=== PATIENT | female | born 1935 | race Caucasian/White ===

== ENCOUNTER 2019-08-13 16:11 | Inpatient (IN) | payer MEDICARE ==
[~2019-08-13] VITALS: Ht 170.2 cm; Wt 56.7 kg
--- NOTE | 2019-08-13 19:15 | NUR ---
ADMITTED PATIENT IN ARU UNDER THE CARE OF DR. PIZARRO. PATIENT ALERT WITH FORGETFULNESS, NO COMPLAIN OF PAIN AT THIS TIME EXCEPT WHEN PATIENT BEING TURNED AND REPOSITION. PATIENT HAS THE ORIGINAL DRESSING ON HER R HIP, AND R LATERAL LEG, PATIENT HAS ALSO MULTIPLE BRUISE ON LEFT FACE, LEFT EYES, LEFT FOREHEAD, MULTIPLE BRUISE ON LEFT ARM. PATIENT ALSO HAS R LEG EDEMA AND BILATERAL ANKLE EDEMA. PATIENT ALSO HAS LEFT BUTTOCK MULTIPLE BRUISE. FAMILY AT BED SIDE, ORIENT TO STAFF AND CALL LIGHTS, CONT TO MONITOR.
[2019-08-13 20:49] VITALS: BP 113/56
[2019-08-13 21:22] VITALS: BP 119/58
--- NOTE | 2019-08-13 23:00 | NUR ---
PLACE A CALL TO DR. ESPINAL TO NOTIFY ABOUT PATIENT ADMISSION AND MEDICATION RECONCILIATION. OKAYED THE REQUEST.
[2019-08-13] MEDS ORDERED: HYDROCODONE/APAP 5-325MG TABLET PO PRN (23:30)
[2019-08-14] MEDS: ACETAMINOPHEN 325 MG TABLET PO PRN ×3 (03:40→20:36)
--- NOTE | 2019-08-14 04:02 | NUR ---
PATIENT ALERT BUT FORGETFUL, PATIENT COMPLAIN OF R HIP PAIN WHEN MOVED OR TURN FOR BEDPAN. MEDICATE PATIENT FOR PAIN, AND PLACE ICE PACK FOR SWELLING AND FOR PAIN. PATIENT WAS CHECKED, TURN EVERY TWO HOURS, AND ASSESSED FOR PAIN, CONT TO MONITOR. DAUGHTER AT BEDSIDE.
[2019-08-14 05:56] VITALS: BP 147/59
[2019-08-14 08:00] VITALS: BP 124/57
[2019-08-14] MEDS: DONEPEZIL 10 MG TABLET PO SCH (08:23)
[2019-08-14] MEDS: MULTIVITAMINS,THERAPEUTIC TABLET PO SCH (08:23)
[2019-08-14] MEDS: ASPIRIN 81 MG TAB.CHEW PO SCH (08:23)
[2019-08-14] MEDS: METOPROLOL TARTRATE 50 MG TABLET PO SCH ×2 (08:26→20:35)
[2019-08-14] MEDS ORDERED: NADOLOL 40 MG TABLET PO SCH (09:00)
[2019-08-14] MEDS: MEMANTINE HCL 10 MG TABLET PO SCH ×2 (09:18→16:48)
[2019-08-14] MEDS: CALCIUM CARB/VITAMIN D 600-400 MG TABLET PO SCH (09:18)
--- NOTE | 2019-08-14 13:47 | NUR ---
ROSETTA DANIEL MADE AWARE ABOUT RESTARTING OF LOVENOX AND LABS TO REPEAT
[2019-08-14 14:45] LABS: BASOPHILS # (AUTO) 0.1 K/uL (0.0-8.0); BASOPHILS % (AUTO) 0.5 % (0.0-2.0); EOSINOPHILS # (AUTO) 0.2 K/uL (0.0-0.7); EOSINOPHILS % (AUTO) 1.2 % (0.0-7.0); HEMATOCRIT 32.2 % (31.2-41.9); HEMOGLOBIN 10.4 g/dL (10.9-14.3); LYMPHOCYTES # (AUTO) 2.2 K/uL (20.0-40.0); LYMPHOCYTES % (AUTO) 14.5 % (20.5-51.5); MEAN CORPUSCULAR HEMOGLOBIN 27.1 uug (24.7-32.8); MEAN CORPUSCULAR HGB CONC 32 g/dL (32.3-35.6); MEAN CORPUSCULAR VOLUME 84.1 fL (75.5-95.3); MONOCYTES # (AUTO) 1.4 K/uL (2.0-10.0); MONOCYTES % (AUTO) 9.2 % (0.0-11.0); NEUTROPHILS # (AUTO) 11.2 K/uL (1.8-8.9); NEUTROPHILS % (AUTO) 74.6 % (38.5-71.5); PLATELET COUNT (AUTO) 275 K/uL (179-408); RED BLOOD CELL COUNT(AUTO) 3.84 MIL/uL (3.63-4.92); WHITE BLOOD COUNT (AUTO) 15.1 K/uL (3.8-11.8)
[2019-08-14 14:54] LABS: CREATININE 0.8 mg/dL (0.6-1.3); MAGNESIUM 1.9 mg/dL (1.8-2.4); PHOSPHOROUS 3.5 mg/dL (2.5-4.9); POTASSIUM 4.1 mmol/L (3.5-5.1)
[2019-08-14 16:55] VITALS: BP 107/45
--- NOTE | 2019-08-14 19:30 | NUR ---
RECEIVED PT IN NO ACUTE DISTRESS.FAMILY AT BEDSIDE. PT NEEDS REORIENTATION. SAFETY AND COMFORT PROVIDED. WILL CONTINUE TO MONITOR.
[2019-08-14 19:36] VITALS: BP 137/68
--- NOTE | 2019-08-14 19:46 | NUR ---
Pt received, assessed, AAOx1-2,forgetful at times, oriented to self, able to make needs known, no acute distress. Tylenol administered for pain prior to therapy evaluations. Reported effective. Pt compliant with therapy and medication administration. Right hip Sx site with original dressing intact. Significant bruises noted all over BL LE and UE, and right side of face. Pt seen by MD, new orders received, will follow up as necessary. No s/s of infection. VSS. Family present visiting at bedside continuously throughout shift. All comfort and safety measures implemented. Pt assisted to toilet, x2 transfer, voiding and BMx1. Call light and personal items placed within reach. Will continue to monitor and endorse to oncoming shift superintendent caustic cresylate.
[2019-08-15 01:29] LABS: *BILIRUBIN,URIN NEGATIVE (NEGATIVE); *COLOR,URINE YELLOW (YELLOW); *KETONES,URINE NEGATIVE (NEGATIVE); *UROBILINOGEN,URINE 0.2 E.U./dl (NORMAL); LEUKOCYTE ESTERASE ,URINE TRACE (NEGATIVE); NITRITE, URINE NEGATIVE (NEGATIVE); UGLUCOSE NEGATIVE (NEGATIVE)
[2019-08-15 01:50] LABS: *BLOOD, URINE TRACE (NEGATIVE); *CLARITY,URINE HAZY (CLEAR)
[2019-08-15 01:54] LABS: BACTERIA,URINE FEW /HPF (NONE SEEN); RBC,URINE 0-3 /HPF (0-3); SQUAMOUS EPITHELIAL CELL,UR FEW /HPF (NONE SEEN)
--- NOTE | 2019-08-15 06:17 | NUR ---
PT IN NO ACUTE DISTRESS. DAUGHTER AT BEDSIDE.PRESCRIBED MEDICATION GIVEN AND PT TOLERATED IT WELL. PT ASSISTED TO THE BATHROOM FOR VOIDING AND RETURNED SAFELY TO BED. URINE SPECIMEN COLLECTED AND SENT TO LAB. DRESSING INTACT. SAFETY AND COMFORT PROVIDED. ALL NEEDS ARE MET. ENDORSE TO ONCOMING DAYSHIFT NURSE.
[2019-08-15 08:00] VITALS: BP 132/54
[2019-08-15] MEDS: MEMANTINE HCL 10 MG TABLET PO SCH ×2 (09:02→16:39)
[2019-08-15] MEDS: MULTIVITAMINS,THERAPEUTIC TABLET PO SCH (09:02)
[2019-08-15] MEDS: ASPIRIN 81 MG TAB.CHEW PO SCH (09:02)
[2019-08-15] MEDS: DONEPEZIL 10 MG TABLET PO SCH (09:03)
[2019-08-15] MEDS: CYANOCOBALAMIN 100 MCG TABLET PO SCH (09:03)
[2019-08-15] MEDS: CALCIUM CARB/VITAMIN D 600-400 MG TABLET PO SCH (09:03)
[2019-08-15] MEDS: METOPROLOL TARTRATE 50 MG TABLET PO SCH ×2 (09:05→20:50)
[2019-08-15] MEDS: ACETAMINOPHEN 325 MG TABLET PO PRN ×3 (10:18→20:50)
[2019-08-15] MEDS ORDERED: ENOXAPARIN SODIUM 40 MG/0.4 ML DISP.SYRIN SQ SCH (10:45)
[2019-08-15] MEDS: ENOXAPARIN SODIUM 40 MG/0.4 ML DISP.SYRIN SQ SCH (12:18)
[2019-08-15 20:07] VITALS: BP 115/51
[2019-08-16 04:35] VITALS: BP 128/53
[2019-08-16 08:01] VITALS: BP 137/52
[2019-08-16] MEDS: DONEPEZIL 10 MG TABLET PO SCH (08:23)
[2019-08-16] MEDS: MULTIVITAMINS,THERAPEUTIC TABLET PO SCH (08:23)
[2019-08-16] MEDS: ASPIRIN 81 MG TAB.CHEW PO SCH (08:23)
[2019-08-16] MEDS: CALCIUM CARB/VITAMIN D 600-400 MG TABLET PO SCH (08:24)
[2019-08-16] MEDS: METOPROLOL TARTRATE 50 MG TABLET PO SCH ×2 (08:24→20:29)
[2019-08-16] MEDS: MEMANTINE HCL 10 MG TABLET PO SCH ×2 (08:25→16:58)
[2019-08-16] MEDS: ACETAMINOPHEN 325 MG TABLET PO PRN (08:32)
[2019-08-16] MEDS: ENOXAPARIN SODIUM 40 MG/0.4 ML DISP.SYRIN SQ SCH (08:34)
--- NOTE | 2019-08-16 09:33 | NUR ---
Received pt. in bed A/OX1-2, verbally responsive but forgetful at times. All due medications administered as ordered. In no acute distress. On RA and tolerating well. Rt hip dressing C/D/I. Pt. showered this AM. Tylenol given PRN pain. Tolerated diet well. Safety measures in place. Call light and all frequently used items in place. Will continue to monitor accordingly.
--- NOTE | 2019-08-16 11:33 | NUR ---
INDIVIDUALIZE OVERALL PLAN OF CARE
--- NOTE | 2019-08-16 14:23 | NUR ---
INTERDISCIPLINARY TEAM CONFERENCE
--- NOTE | 2019-08-16 18:18 | NUR ---
EOS: No significant changes. All due medications given as ordered. Skin care rendered. Safety measures in place. Call light and all frequently used items within pt. reach. Will endorse to oncoming shift accordingly.
[2019-08-16 20:34] VITALS: BP 123/63
--- NOTE | 2019-08-16 21:55 | NUR ---
OOB in chair upon initial rounds. Sitter at bedside. Fall precautions maintained. VSS. OOB with walker to the BR. Voiding without difficulty. No distress noted. No complains presented during shift.
[2019-08-17 05:54] VITALS: BP 118/58
--- NOTE | 2019-08-17 06:32 | NUR ---
End of shift note: Quiet night. Sitter @ bedside. No acute distress noted. Slept well. No signs of agitation or restlessness. Fall precautions maintained.
--- NOTE | 2019-08-17 07:30 | NUR ---
RECEIVED PT WITH EYES CLOSED BUT EASILY AROUSABLE TO VERBAL STIMULI, ON BREATHING TREATMENT, NOT IN RESPIRATORY DISTRESS DURING NURSING ROUNDS. Addendum: 08/17/19 at 4 by RODRI ADAMS RN WRONG PATIENT DOCUMENTATION.
--- NOTE | 2019-08-17 07:30 | NUR ---
PATIENT'S AWAKE, ALERT , RESPONSIVE, NOT IN RESPIRATORY DISTRESS, NO MANIFESTATION OF PAIN NOR DISCOMFORT AT THIS TIME. WITH AT THE BEDSIDE , ON 1:1 SITTER FOR SAFETY.
[2019-08-17 08:00] VITALS: BP 104/51
[2019-08-17] MEDS: METOPROLOL TARTRATE 50 MG TABLET PO SCH ×2 (09:00→20:16)
[2019-08-17] MEDS: MEMANTINE HCL 10 MG TABLET PO SCH ×2 (09:37→17:54)
[2019-08-17] MEDS: DONEPEZIL 10 MG TABLET PO SCH (09:37)
[2019-08-17] MEDS: ASPIRIN 81 MG TAB.CHEW PO SCH (09:38)
[2019-08-17] MEDS: CALCIUM CARB/VITAMIN D 600-400 MG TABLET PO SCH (09:38)
[2019-08-17] MEDS: MULTIVITAMINS,THERAPEUTIC TABLET PO SCH (09:38)
[2019-08-17] MEDS: ENOXAPARIN SODIUM 40 MG/0.4 ML DISP.SYRIN SQ SCH (09:40)
[2019-08-17] MEDS: CYANOCOBALAMIN 100 MCG TABLET PO SCH (12:44)
--- NOTE | 2019-08-17 19:30 | NUR ---
PT HAS NO C/O PAIN NOR DISCOMFORT DURING THE SHIFT , OFFERED PAIN MED BUT PT SAID SHE HAS NO PAIN . UP BY MACHINE I ENGRAVER SITTER TO THE BATHROOM, HAD BM TODAY DURING THE SHIFT, VOIDED ON THE BEDPAN BUT WITH INCONTINENCE, WEARS DIAPER WHEN IN BED. PT KEPT CLEAN AND DRY.
--- NOTE | 2019-08-17 19:30 | NUR ---
BLOOD SUGAR CHECKED DONE, NO SIGN AND SYMPTOMS OF HYPO/HYPERGLYCEMIA NOTED DURING THE SHIFT.TYLENOL 650MG PO GIVEN FOR PAIN MANIFESTED BY FACIAL GRIMACE. TURNED AND REPOSITIONED , ATE 75% DURING MEALTIME. CALL LIGHT WITHIN REACH BUT DOESN'T USE CALL LIGHT , NEEDS ANTICIPATED.KEPT CLEAN AND DRY. Addendum: 08/17/19 at 1953 by RODRI ADAMS RN WRONG PATIENT DOCUMENTATION.
[2019-08-17] MEDS: ACETAMINOPHEN 325 MG TABLET PO PRN (21:04)
--- NOTE | 2019-08-17 21:32 | NUR ---
Confused and disoriented. VSS. Patient on 1:1 sitter at bedside. Compliant with care. Took meds without difficulty. Needs attended. VSS. Continent/incontinent of urine . Kept clean and dry. Fall precautions maintained. Siderails up for safety.
--- NOTE | 2019-08-18 05:42 | NUR ---
End of shift note: Patient been up all night. Very confused and disoriented. Wanting to get OOB and wants to talk to and see him. Though how much explaining to do still very adamant to leave. Tylenol given, able to take and hoping patient will sleep but it didn't work. Patient wasnt agitated but keep on asking wants to see her . [place] 1 tab also given. VSS Will monitor patient. Bed alarm on.
[2019-08-18 05:45] VITALS: BP 137/45
[2019-08-18 08:00] VITALS: BP 129/66
[2019-08-18] MEDS: ASPIRIN 81 MG TAB.CHEW PO SCH (08:27)
[2019-08-18] MEDS: MULTIVITAMINS,THERAPEUTIC TABLET PO SCH (08:27)
[2019-08-18] MEDS: MEMANTINE HCL 10 MG TABLET PO SCH ×2 (08:28→16:14)
[2019-08-18] MEDS: CALCIUM CARB/VITAMIN D 600-400 MG TABLET PO SCH (08:28)
[2019-08-18] MEDS: ACETAMINOPHEN 325 MG TABLET PO PRN ×2 (08:28→14:47)
[2019-08-18] MEDS: DONEPEZIL 10 MG TABLET PO SCH (08:28)
[2019-08-18] MEDS: METOPROLOL TARTRATE 50 MG TABLET PO SCH ×2 (08:29→20:09)
[2019-08-18] MEDS: ENOXAPARIN SODIUM 40 MG/0.4 ML DISP.SYRIN SQ SCH (08:34)
--- NOTE | 2019-08-18 15:40 | NUR ---
Pt received resting in bed with sister visiting bedside, assessed, no acute distress. Tylenol administered prior to therapy, per MD recommendation. Pt AAOx2-3, complaint with plan of care. Pt compliant with routine medication administration and cooperative with therapies as offered. Pt reports tired from lack of sleep last night. Pain relief reported effective from Tylenol. Ic packs applied following therapy. Original dressings to right hip remain intact. VSS. All comfort and safety measures implemented. Pt assisted to toilet for voiding, clear, yellow urine. Returned to bed, bed in locked and lowest position with side rails up x2, and bed alarm on. 1:1 sitter remains present at bedside. Call light and personal items placed within reach. Will continue to monitor.
[2019-08-18 16:00] VITALS: BP 114/56
[2019-08-18 19:58] VITALS: BP 114/50
--- NOTE | 2019-08-18 21:23 | NUR ---
Received pt resting in bed. AAO x1-2. was at bedside. Sitter present for safety. Pt high risk for fall. No acute distress noted. No facial cues for pain noted at this time. BP med held due to decreased BP. Safety measures maintained. Call light and personal items within reach. Will continue to monitor.
[2019-08-19 05:50] VITALS: BP 127/50
[2019-08-19 07:24] LABS: CREATININE 0.7 mg/dL (0.6-1.3); MAGNESIUM 1.9 mg/dL (1.8-2.4); PHOSPHOROUS 3.8 mg/dL (2.5-4.9)
[2019-08-19 07:48] LABS: BASOPHILS # (AUTO) 0.1 K/uL (0.0-8.0); BASOPHILS % (AUTO) 0.8 % (0.0-2.0); EOSINOPHILS # (AUTO) 0.2 K/uL (0.0-0.7); EOSINOPHILS % (AUTO) 2.2 % (0.0-7.0); HEMATOCRIT 28.3 % (31.2-41.9); HEMOGLOBIN 9.6 g/dL (10.9-14.3); LYMPHOCYTES # (AUTO) 2.3 K/uL (20.0-40.0); LYMPHOCYTES % (AUTO) 20.6 % (20.5-51.5); MEAN CORPUSCULAR HEMOGLOBIN 28.9 uug (24.7-32.8); MEAN CORPUSCULAR HGB CONC 34 g/dL (32.3-35.6); MEAN CORPUSCULAR VOLUME 85.4 fL (75.5-95.3); MONOCYTES # (AUTO) 1.3 K/uL (2.0-10.0); MONOCYTES % (AUTO) 11.6 % (0.0-11.0); NEUTROPHILS # (AUTO) 7.1 K/uL (1.8-8.9); NEUTROPHILS % (AUTO) 64.8 % (38.5-71.5); RED BLOOD CELL COUNT(AUTO) 3.31 MIL/uL (3.63-4.92)
[2019-08-19 07:59] LABS: PLATELET COUNT (AUTO) 375 K/uL (179-408)
[2019-08-19 08:00] VITALS: BP 133/78
[2019-08-19 08:23] LABS: *BILIRUBIN,URIN NEGATIVE (NEGATIVE); *BLOOD, URINE 1+ (NEGATIVE); *CLARITY,URINE SLIGHTLY CLOUDY (CLEAR); *COLOR,URINE YELLOW (YELLOW); *KETONES,URINE NEGATIVE (NEGATIVE); *UROBILINOGEN,URINE 0.2 E.U./dl (NORMAL); LEUKOCYTE ESTERASE ,URINE 1+ (NEGATIVE); NITRITE, URINE NEGATIVE (NEGATIVE); PH,URINE 8.5 (5.0-8.0); UGLUCOSE NEGATIVE (NEGATIVE)
[2019-08-19 09:24] LABS: RBC,URINE 20-50 /HPF (0-3)
[2019-08-19] MEDS: CYANOCOBALAMIN 100 MCG TABLET PO SCH (09:24)
[2019-08-19] MEDS: MEMANTINE HCL 10 MG TABLET PO SCH ×2 (09:24→16:16)
[2019-08-19] MEDS: ASPIRIN 81 MG TAB.CHEW PO SCH (09:24)
[2019-08-19] MEDS: ACETAMINOPHEN 325 MG TABLET PO PRN ×2 (09:24→16:16)
[2019-08-19] MEDS: MULTIVITAMINS,THERAPEUTIC TABLET PO SCH (09:24)
[2019-08-19] MEDS: CALCIUM CARB/VITAMIN D 600-400 MG TABLET PO SCH (09:24)
[2019-08-19] MEDS: DONEPEZIL 10 MG TABLET PO SCH (09:25)
[2019-08-19] MEDS: METOPROLOL TARTRATE 50 MG TABLET PO SCH ×2 (09:26→20:53)
[2019-08-19 09:27] LABS: BACTERIA,URINE MODERATE /HPF (NONE SEEN); SQUAMOUS EPITHELIAL CELL,UR MODERATE /HPF (NONE SEEN); WBC,URINE 20-50 /HPF (0-3)
[2019-08-19 09:28] LABS: URINE AMORPHOUS PHOSPHATES FEW /HPF
[2019-08-19] MEDS: ENOXAPARIN SODIUM 40 MG/0.4 ML DISP.SYRIN SQ SCH (09:40)
--- NOTE | 2019-08-19 13:29 | NUR ---
Pt received, assessed, no acute distress or SOB. VSS. Pt able to make needs known, AAOx2-3, at bedside. Tylenol administered prior to therapy as requested by MD for preventative pain management. Pt cooperative with routine medication administration and compliant with all therapies as offered. Urine sample sent to lab beginning of day shift. Original right hip surgical dressings intact. Pt assisted to bathroom with walker for voiding and BMx1. No evidence of prolapsed uterus as endorse, will continue to monitor and follow up. Pt assisted to wheelchair via walker, and helped to get dressed. All comfort and safety needs met. Call light and personal items placed within reach. Will continue to monitor for safety.
[2019-08-19 16:22] VITALS: BP 127/52
[2019-08-19] MEDS: CEphaleXIN 500 MG CAPSULE PO SCH (20:52)
[2019-08-20 06:01] VITALS: BP 130/58
--- NOTE | 2019-08-20 06:20 | NUR ---
Patient slept well. Started on Keflex 500mg PO BID for UTI. Daughter at bedside for safety. All needs attended. Will endorse accordingly
[2019-08-20 08:00] VITALS: BP 126/57
[2019-08-20] MEDS: MULTIVITAMINS,THERAPEUTIC TABLET PO SCH (09:44)
[2019-08-20] MEDS: ACETAMINOPHEN 325 MG TABLET PO PRN ×2 (09:44→14:58)
[2019-08-20] MEDS: DONEPEZIL 10 MG TABLET PO SCH (09:45)
[2019-08-20] MEDS: CALCIUM CARB/VITAMIN D 600-400 MG TABLET PO SCH (09:45)
[2019-08-20] MEDS: CEphaleXIN 500 MG CAPSULE PO SCH ×2 (09:45→16:56)
[2019-08-20] MEDS: ASPIRIN 81 MG TAB.CHEW PO SCH (09:45)
[2019-08-20] MEDS: METOPROLOL TARTRATE 50 MG TABLET PO SCH ×2 (09:46→20:57)
[2019-08-20] MEDS: ENOXAPARIN SODIUM 40 MG/0.4 ML DISP.SYRIN SQ SCH (09:53)
[2019-08-20] MEDS: MEMANTINE HCL 10 MG TABLET PO SCH ×2 (10:34→16:56)
[2019-08-20 15:39] VITALS: BP 119/57
--- NOTE | 2019-08-20 17:46 | NUR ---
Pt received, assessed, AAOx23, forgetful at times. Pt able to make needs known. Tylenol administered PRN for pain management, with ice applied, original surgical dressings reinforced. Pt compliant with medication administration and therapies as offered. Pt assisted to bathroom for voiding and BMx1. Slight hematuria noted. made aware. VSS. All comfort and safety measures implemented. Pt's family request out on pass for dinner tonight. Dr. Cisse notified and approved. Order placed, Pt teaching, and paperwork filled out. Will follow up accordingly. Call light placed within reach, at this time. Will continue to monitor.
[2019-08-20 20:18] VITALS: BP 113/65
--- NOTE | 2019-08-21 04:00 | NUR ---
Patient came back from OOP with family for dinner. AAOx1. Confused and disoriented. Patient pleasantly confused and was cooperative with needs. Tolerated po meds without any difficulty. OOB to the BR with walker upon initial rounds. Patient has some slight hematuria. Daughter was concerned regarding hematuria. Will re-endorse to dayshift nurse to have MD know about it. VSS. No complaints presented during shift. Right hip dressing intact. Will go see the surgeon this week for a follow-up regarding about hip surgery. No distress noted Quiet night. VSS. Fall precautions maintained. Siderailes up for safety.
[2019-08-21 05:12] VITALS: BP 127/50
[2019-08-21 07:56] VITALS: BP 140/59
[2019-08-21] MEDS: ENOXAPARIN SODIUM 40 MG/0.4 ML DISP.SYRIN SQ SCH (08:27)
[2019-08-21] MEDS: CYANOCOBALAMIN 100 MCG TABLET PO SCH (08:28)
[2019-08-21] MEDS: CEphaleXIN 500 MG CAPSULE PO SCH ×2 (08:28→17:17)
[2019-08-21] MEDS: CALCIUM CARB/VITAMIN D 600-400 MG TABLET PO SCH (08:28)
[2019-08-21] MEDS: DONEPEZIL 10 MG TABLET PO SCH (08:28)
[2019-08-21] MEDS: ACETAMINOPHEN 325 MG TABLET PO PRN ×2 (08:28→14:15)
[2019-08-21] MEDS: ASPIRIN 81 MG TAB.CHEW PO SCH (08:28)
[2019-08-21] MEDS: MULTIVITAMINS,THERAPEUTIC TABLET PO SCH (08:28)
[2019-08-21] MEDS: MEMANTINE HCL 10 MG TABLET PO SCH ×2 (08:28→17:17)
[2019-08-21] MEDS: METOPROLOL TARTRATE 50 MG TABLET PO SCH ×2 (08:29→20:10)
[2019-08-21 15:10] VITALS: BP 123/53
--- NOTE | 2019-08-21 17:32 | NUR ---
Patient pleasantly confused, reorients with verbal cues. Oriented to self and setting only, otherwise disoriented. High fall risk, safety precautions in place, family at bedside and bed alarm set. Cooperative with care plan and therapy, tolerating medication. PRN tylenol given for pain management, no distress noted. Right hip dressing in place. Assisted patient with shower today, along with assistance from OT. tolerating diet. Ambulating to BR with walker and assist. Continues on keflex antibiotic for UTI. No further reports or signs of bleeding/spotting from vagina.
--- NOTE | 2019-08-21 19:41 | NUR ---
Condition unchanged. Pleasantly confused and disoriented. Patient redirected. in with patient. Ambulates to the BR with walker. Voiding well. No bleeding or vaginal spotting noted. VSS. Patient with sitter at bedside. Compliant with care and meds. Will monitor patient.
[2019-08-21 20:09] VITALS: BP 119/56
[2019-08-22] MEDS: ACETAMINOPHEN 325 MG TABLET PO PRN ×4 (00:42→20:10)
[2019-08-22 05:10] VITALS: BP 128/56
--- NOTE | 2019-08-22 06:36 | NUR ---
End of shift note: Quiet night. Sitter at bedside. Slept well throughout the night. No signs of agitation or restlessness noted. Calm and cooperative. VSS. Voiding freely in the bedpan. No BM this shift.
[2019-08-22 07:29] LABS: BASOPHILS # (AUTO) 0.1 K/uL (0.0-8.0); BASOPHILS % (AUTO) 1.3 % (0.0-2.0); EOSINOPHILS # (AUTO) 0.2 K/uL (0.0-0.7); EOSINOPHILS % (AUTO) 1.6 % (0.0-7.0); HEMATOCRIT 31.1 % (31.2-41.9); HEMOGLOBIN 10.1 g/dL (10.9-14.3); LYMPHOCYTES # (AUTO) 1.3 K/uL (20.0-40.0); LYMPHOCYTES % (AUTO) 12.4 % (20.5-51.5); MEAN CORPUSCULAR HGB CONC 32 g/dL (32.3-35.6); MEAN CORPUSCULAR VOLUME 86.4 fL (75.5-95.3); MONOCYTES # (AUTO) 0.9 K/uL (2.0-10.0); NEUTROPHILS # (AUTO) 8.2 K/uL (1.8-8.9); NEUTROPHILS % (AUTO) 76.7 % (38.5-71.5); PLATELET COUNT (AUTO) 432 K/uL (179-408); WHITE BLOOD COUNT (AUTO) 10.7 K/uL (3.8-11.8)
[2019-08-22 07:35] VITALS: BP 118/48
[2019-08-22 07:41] LABS: CREATININE 0.7 mg/dL (0.6-1.3); MAGNESIUM 2.1 mg/dL (1.8-2.4); PHOSPHOROUS 4.2 mg/dL (2.5-4.9)
[2019-08-22] MEDS: ASPIRIN 81 MG TAB.CHEW PO SCH (08:34)
[2019-08-22] MEDS: MULTIVITAMINS,THERAPEUTIC TABLET PO SCH (08:34)
[2019-08-22] MEDS: CEphaleXIN 500 MG CAPSULE PO SCH ×2 (08:35→17:09)
[2019-08-22] MEDS: MEMANTINE HCL 10 MG TABLET PO SCH ×2 (08:35→17:09)
[2019-08-22] MEDS: CALCIUM CARB/VITAMIN D 600-400 MG TABLET PO SCH (08:35)
[2019-08-22] MEDS: DONEPEZIL 10 MG TABLET PO SCH (08:35)
[2019-08-22] MEDS: METOPROLOL TARTRATE 50 MG TABLET PO SCH ×2 (08:36→20:10)
[2019-08-22] MEDS: ENOXAPARIN SODIUM 40 MG/0.4 ML DISP.SYRIN SQ SCH (09:00)
--- NOTE | 2019-08-22 12:43 | NUR ---
Pt received, assessed, AAOx2, forgetful at times as to why she is here and where "here" is. No acute distress, pain, or SOB. VSS. Pt compliant with routine medications, including Tylenol as ordered PRN for pain management prior to therapy. Pt cooperative with therapies as offered. Assisted to bathroom with walker for voiding and returned safely to bed. Bed in locked and lowest position, with side rails up x2, alarm on. Original right hip dressing intact. Xray done, will collect CD for scheduled f/u appointment tomorrow. , Milton visiting at bedside. All comfort and safety needs met. Call light and personal items placed within reach, will continue to monitor.
[2019-08-22 14:39] VITALS: BP 119/61
[2019-08-22 20:51] VITALS: BP 131/54
--- NOTE | 2019-08-22 20:59 | NUR ---
patient resting in bed upon initial rounds. Sitter at bedside. No acute distress noted. Temp 100.9 HR 99 Resp 18 BP 131/54 pulse ox 97%RA Tylenol 650mg po given. Encouraged fluids. Ice pack applied. Will monitor patient's temp. Needs attended. Siderails up for safety.
[2019-08-23] MEDS: ACETAMINOPHEN 325 MG TABLET PO PRN ×2 (05:18→18:55)
--- NOTE | 2019-08-23 05:53 | NUR ---
Patient still been spiking a temperature. latest temp 100.6 Tylenol given. Ice packs given. Encouraged fluids. Patient already on ABT for UTI. Will monitor patient. Will recheck temperature again. Patient has an appointment to see Dr Baeza for a follow-up this morning. Sitter at bedside. Bed bath given. Right hip dressing intact. Voided well in bedpan.
[2019-08-23 06:43] VITALS: BP 124/48
[2019-08-23 08:00] VITALS: BP 115/50
[2019-08-23] MEDS: ASPIRIN 81 MG TAB.CHEW PO SCH (08:07)
[2019-08-23] MEDS: DONEPEZIL 10 MG TABLET PO SCH (08:07)
[2019-08-23] MEDS: CALCIUM CARB/VITAMIN D 600-400 MG TABLET PO SCH (08:07)
[2019-08-23] MEDS: CEphaleXIN 500 MG CAPSULE PO SCH ×2 (08:08→17:28)
[2019-08-23] MEDS: CYANOCOBALAMIN 100 MCG TABLET PO SCH (08:10)
[2019-08-23] MEDS: METOPROLOL TARTRATE 50 MG TABLET PO SCH ×2 (08:10→21:00)
[2019-08-23] MEDS: MEMANTINE HCL 10 MG TABLET PO SCH ×2 (08:10→17:28)
[2019-08-23] MEDS: ENOXAPARIN SODIUM 40 MG/0.4 ML DISP.SYRIN SQ SCH (08:11)
[2019-08-23] MEDS: MULTIVITAMINS,THERAPEUTIC TABLET PO SCH (08:24)
--- NOTE | 2019-08-23 08:29 | NUR ---
Pt A/O x 1 to person, but able to understand concepts and follow commands. at bedside. All morning meds administered. No pain or discomfort reported. No distress noted or reported. VS stable. Pt eating breakfast at this time. All safety precautions in place. Pt prepared for 8:45am pick-up to go to Dr. Castro with Dr. Baeza at 9:45 am for follow-up after Right hip sx. CD of right hip X-Ray ready to go with pt. Pt safety maintained. Awaiting Ambulance arrival.
--- NOTE | 2019-08-23 09:00 | NUR ---
Gave SBAR report to EMT. CD of X-Ray given to EMT along with Facesheet and other important documents for pt's Dr. Appointment with Dr. Baeza. Pt A/O x1-[address] at times. Pt forgetful. No distress noted or reported. Pt denied any pain or discomfort at this time. VS stable. All morning meds administered per MD orders. All safety precautions in place. Pt safety maintained. Pt left via ambulance to see Dr. Baeza at [facility]. Awaiting pt's return.
--- NOTE | 2019-08-23 09:04 | NUR ---
PATIENT LEFT FOR ORTHO APT 08/23/2019, STABLE CONDITION, NO DISTRESS NOTED, PATIENT'S WENT WITH PATIENT WELL
--- NOTE | 2019-08-23 11:25 | NUR ---
PATIENT CAME BACK FROM ORTHO APT WITH ORDER RLE WBAT, FOLLOW UP IN 6 WEEKS WITH XRAYS AND PATIENT CAN SHOWER
[2019-08-23 16:00] VITALS: BP 108/57
--- NOTE | 2019-08-23 16:31 | NUR ---
INTERDISCIPLINARY TEAM CONFERENCE
--- NOTE | 2019-08-23 19:42 | NUR ---
RECEIVED PATIENT IN BED, ALERT AND VERBALLY RESPONSIVE. PATIENT'S SISTER AT BEDSIDE. PATIENT ABLE TO MAKE NEEDS KNOWN. WARM, DRY, AND COMFORTABLE AT THIS TIME. FALL AND SAFETY PRECAUTIONS OBSERVED. WILL CONTINUE TO MONITOR PATIENT.
[2019-08-23 20:58] VITALS: BP 114/51
[2019-08-24 04:00] VITALS: BP 125/55
--- NOTE | 2019-08-24 06:52 | NUR ---
PATIENT IS IN BED, INTERMITTENTLY AWAKE AND ASLEEP. PATIENT'S SON AT BEDSIDE. PATIENT AFEBRILE THROUGHOUT SHIFT. ON CLOSE MONITORING FOR FALL AND SAFETY PRECAUTIONS. WITH ONGOING PO ATB KEFLEX. NO ASE D/T ATB USE NOTED. ALL NEEDS ATTENDED.
[2019-08-24 06:59] LABS: BASOPHILS % (AUTO) 0.6 % (0.0-2.0); EOSINOPHILS # (AUTO) 0.1 K/uL (0.0-0.7); EOSINOPHILS % (AUTO) 1.1 % (0.0-7.0); HEMATOCRIT 28.4 % (31.2-41.9); HEMOGLOBIN 9.4 g/dL (10.9-14.3); LYMPHOCYTES # (AUTO) 1.5 K/uL (20.0-40.0); LYMPHOCYTES % (AUTO) 18.3 % (20.5-51.5); MEAN CORPUSCULAR HEMOGLOBIN 28.5 uug (24.7-32.8); MEAN CORPUSCULAR HGB CONC 33 g/dL (32.3-35.6); MEAN CORPUSCULAR VOLUME 85.9 fL (75.5-95.3); MONOCYTES # (AUTO) 1.2 K/uL (2.0-10.0); MONOCYTES % (AUTO) 14.2 % (0.0-11.0); NEUTROPHILS # (AUTO) 5.5 K/uL (1.8-8.9); NEUTROPHILS % (AUTO) 65.8 % (38.5-71.5); PLATELET COUNT (AUTO) 338 K/uL (179-408); RED BLOOD CELL COUNT(AUTO) 3.31 MIL/uL (3.63-4.92); WHITE BLOOD COUNT (AUTO) 8.3 K/uL (3.8-11.8)
[2019-08-24 07:15] LABS: CREATININE 0.7 mg/dL (0.6-1.3); MAGNESIUM 1.9 mg/dL (1.8-2.4); PHOSPHOROUS 3.6 mg/dL (2.5-4.9); POTASSIUM 3.6 mmol/L (3.5-5.1)
[2019-08-24 07:50] VITALS: BP 113/50
[2019-08-24] MEDS: ASPIRIN 81 MG TAB.CHEW PO SCH (08:49)
[2019-08-24] MEDS: DONEPEZIL 10 MG TABLET PO SCH (08:49)
[2019-08-24] MEDS: MULTIVITAMINS,THERAPEUTIC TABLET PO SCH (08:49)
[2019-08-24] MEDS: CALCIUM CARB/VITAMIN D 600-400 MG TABLET PO SCH (08:50)
[2019-08-24] MEDS: CEphaleXIN 500 MG CAPSULE PO SCH ×2 (08:50→16:29)
[2019-08-24] MEDS: METOPROLOL TARTRATE 50 MG TABLET PO SCH ×2 (08:50→21:17)
[2019-08-24] MEDS: MEMANTINE HCL 10 MG TABLET PO SCH ×2 (08:50→16:29)
[2019-08-24] MEDS: ENOXAPARIN SODIUM 40 MG/0.4 ML DISP.SYRIN SQ SCH (08:52)
[2019-08-24 15:33] VITALS: BP 119/52
--- NOTE | 2019-08-24 16:59 | NUR ---
alert, oriented, episodes of short memory loss noticeable. Son at bedside, then left, daughter stopped by to be with the patient. No complaint of pain, nor discomfort.
--- NOTE | 2019-08-24 19:42 | NUR ---
RECEIVED PATIENT IN BED WITH HEAD OF BED ELEVATED AT 60 DEGREES. PATIENT'S FAMILY AT BEDSIDE. ALERT AND VERBALLY RESPONSIVE. PLEASANT. PATIENT IN NO ACUTE OR RESPIRATORY DISTRESS. RESPIRATIONS EVEN AND UNLABORED. DENIES PAIN AT THIS TIME. NO C/O NAUSEA OR VOMITING. NO C/O HEADACHE OR CHANGES IN MENTATION. FALL AND SAFETY PRECAUTIONS OBSERVED. WILL CONTINUE TO MONITOR PATIENT.
[2019-08-24 20:14] VITALS: BP 116/64
[2019-08-25 05:18] VITALS: BP 117/52
--- NOTE | 2019-08-25 06:42 | NUR ---
PATIENT IS IN BED, ASLEEP BUT EASILY AROUSED. AFEBRILE. NO RESPIRATORY OR ACUTE DISTRESS OBSERVED. PATIENT STILL WITH EPISODES OF CONFUSION OR FORGETFULNESS. ABLE TO AMBULATE TO BATHROOM WITH ASSIST WITH WALKER. RECEIVED DUE MEDICATION, TOLERATED WELL. FALL AND SAFETY PRECAUTIONS OBSERVED. SITTER AT PATIENT'S BEDSIDE. LEFT PATIENT IN BED WITH HEAD OF BED ELEVATED AT 60 DEGREES. CALL LIGHT AND PERSONAL BELONGINGS WITHIN REACH. BED WHEELS LOCKED WITH SIDE RAILS UP X 2. BED AT LOW POSITION. BED ALARM ON.
[2019-08-25 08:00] VITALS: BP 114/55
[2019-08-25] MEDS: MEMANTINE HCL 10 MG TABLET PO SCH ×2 (09:10→16:50)
[2019-08-25] MEDS: DONEPEZIL 10 MG TABLET PO SCH (09:10)
[2019-08-25] MEDS: MULTIVITAMINS,THERAPEUTIC TABLET PO SCH (09:10)
[2019-08-25] MEDS: CYANOCOBALAMIN 100 MCG TABLET PO SCH (09:11)
[2019-08-25] MEDS: ASPIRIN 81 MG TAB.CHEW PO SCH (09:11)
[2019-08-25] MEDS: ACETAMINOPHEN 325 MG TABLET PO PRN ×2 (09:11→16:51)
[2019-08-25] MEDS: CALCIUM CARB/VITAMIN D 600-400 MG TABLET PO SCH (09:11)
[2019-08-25] MEDS: METOPROLOL TARTRATE 50 MG TABLET PO SCH ×2 (09:12→20:12)
[2019-08-25] MEDS: ENOXAPARIN SODIUM 40 MG/0.4 ML DISP.SYRIN SQ SCH (09:18)
[2019-08-25] MEDS: CEphaleXIN 500 MG CAPSULE PO SCH ×2 (09:43→16:50)
[2019-08-25 16:00] VITALS: BP 120/54
--- NOTE | 2019-08-25 16:24 | NUR ---
Pt received, assessed, AAOx2 with forgetfulness, family at bedside. No acute distress, pain, or SOB. VSS. Right hip surgical site steri strips intact. No s/s. Pt compliant with medication administration and cooperative with therapies as offered. Bed in locked, lowest position with side rails upx2, bed alarm on. All comfort and safety needs attended to. Personal items and call light placed within reach. Will continue to monitor.
--- NOTE | 2019-08-25 19:30 | NUR ---
RECEIVED PT AWAKE, ALERT AND ORIENTEDX2. PT NEEDS REORIENTATION. PT SITTING ON A WHEELCHAIR. AT BEDSIDE. PT IN NO ACUTE DISTRESS. SAFETY AND COMFORT PROVIDED. WILL CONTINUE TO MONITOR.
[2019-08-25 20:30] VITALS: BP 112/48
--- NOTE | 2019-08-25 22:00 | NUR ---
LOPRESSOR NONADMINISTERED BECAUSE PT IS SLEEPING. VITAL SIGNS WITHIN NORMAL LIMIT. PT IN NO ACUTE DISTRESS. SITTER AT BEDSIDE. WILL CONTINUE TO MONITOR.
[2019-08-26 05:14] VITALS: BP 126/58
--- NOTE | 2019-08-26 06:23 | NUR ---
PT IN NO ACUTE DISTRESS. FEATHER BALER AT BEDSIDE. ASSISTED TO THE BATHROOM. PT TOLERATED IT WELL. SAFETY PROVIDED. PRESCRIBED MEDICATION GIVEN AND PT TOLERATED IT WELL. ALL NEEDS ARE MET. WILL ENDORSE TO INCOMING NURSE FOR CONTINUITY OF CARE.
[2019-08-26 07:41] VITALS: BP 114/56
[2019-08-26] MEDS: DONEPEZIL 10 MG TABLET PO SCH (08:04)
[2019-08-26] MEDS: ASPIRIN 81 MG TAB.CHEW PO SCH (08:04)
[2019-08-26] MEDS: MULTIVITAMINS,THERAPEUTIC TABLET PO SCH (08:04)
[2019-08-26] MEDS: METOPROLOL TARTRATE 50 MG TABLET PO SCH ×2 (08:04→20:42)
[2019-08-26] MEDS: CALCIUM CARB/VITAMIN D 600-400 MG TABLET PO SCH (08:05)
[2019-08-26] MEDS: MEMANTINE HCL 10 MG TABLET PO SCH ×2 (08:05→16:38)
[2019-08-26] MEDS: CEphaleXIN 500 MG CAPSULE PO SCH ×2 (08:05→16:38)
[2019-08-26] MEDS: ENOXAPARIN SODIUM 40 MG/0.4 ML DISP.SYRIN SQ SCH (08:07)
[2019-08-26 14:59] VITALS: BP 120/64
--- NOTE | 2019-08-26 15:54 | NUR ---
Patient continuity of care endorse to charge R.N. Sulma. patient left in bed resting comfortably, no c/of pain or any other discomfort. Private sitter at bedside.
[2019-08-26 20:00] VITALS: BP 123/66
--- NOTE | 2019-08-27 04:26 | NUR ---
Received patient in bed. AAO x2. Not in acute distress or SOB. On room air. No complain of pain. Private sitter at the bedside. Physical assessment done. Surgical site steri strips in place. Fall prevention observed. Safety measures maintained. Educated patient to use call light. Bed in low and lock position, alarm on, side rails up x2 for safety. Call light and frequently used items within reach. Continue to monitor and will endorse to the day shift nurse accordingly.
[2019-08-27 05:53] VITALS: BP 118/63
[2019-08-27 07:40] VITALS: BP 116/47
[2019-08-27] MEDS: MULTIVITAMINS,THERAPEUTIC TABLET PO SCH (08:29)
[2019-08-27] MEDS: ASPIRIN 81 MG TAB.CHEW PO SCH (08:29)
[2019-08-27] MEDS: MEMANTINE HCL 10 MG TABLET PO SCH ×2 (08:29→16:51)
[2019-08-27] MEDS: DONEPEZIL 10 MG TABLET PO SCH (08:29)
[2019-08-27] MEDS: METOPROLOL TARTRATE 50 MG TABLET PO SCH ×2 (08:30→20:28)
[2019-08-27] MEDS: CALCIUM CARB/VITAMIN D 600-400 MG TABLET PO SCH (08:30)
[2019-08-27] MEDS: ACETAMINOPHEN 325 MG TABLET PO PRN ×2 (08:31→16:51)
[2019-08-27] MEDS: CYANOCOBALAMIN 100 MCG TABLET PO SCH (08:31)
[2019-08-27] MEDS: ENOXAPARIN SODIUM 40 MG/0.4 ML DISP.SYRIN SQ SCH (08:39)
--- NOTE | 2019-08-27 09:47 | NUR ---
Pt received, assessed, AAOx2, with episodes of forgetfulness regarding location and situation. Pt able to make needs known. Pt denies pain at this time, agreeing to take Tylenol as ordered PRN pain prevention. Milton at bedside. Pt compliant with all routine morning medications and therapies as provided. Right hip surgical site well approximated with steri strips intact. No s/s of infection. Bed in locked and lowest position with side rails x2, alarm on. All comfort and safety measures implemented. Call light and personal items placed within reach. Will continue to monitor.
[2019-08-27 15:43] VITALS: BP 117/66
[2019-08-27 19:44] VITALS: BP 111/48
--- NOTE | 2019-08-27 20:44 | NUR ---
Received pt sleeping comfortably. Aroused easily to verbal stimuli. Alert and oriented x2. Personal sitter at bedside. No acute distress noted. Denies pain/ discomfort. Held BP med due to decreased BP 111/48. Safety measures maintained. Call light and personal items within reach. Will continue to monitor.
[2019-08-28 04:52] VITALS: BP 124/61
[2019-08-28] MEDS: ASPIRIN 81 MG TAB.CHEW PO SCH (08:24)
[2019-08-28] MEDS: METOPROLOL TARTRATE 50 MG TABLET PO SCH ×2 (08:25→20:10)
[2019-08-28] MEDS: MULTIVITAMINS,THERAPEUTIC TABLET PO SCH (08:27)
[2019-08-28] MEDS: CALCIUM CARB/VITAMIN D 600-400 MG TABLET PO SCH (08:27)
[2019-08-28] MEDS: MEMANTINE HCL 10 MG TABLET PO SCH ×2 (08:27→17:20)
[2019-08-28] MEDS: ENOXAPARIN SODIUM 40 MG/0.4 ML DISP.SYRIN SQ SCH (08:29)
[2019-08-28] MEDS: DONEPEZIL 10 MG TABLET PO SCH (08:31)
[2019-08-28 08:41] VITALS: BP 124/61
[2019-08-28] MEDS: ACETAMINOPHEN 325 MG TABLET PO PRN (08:48)
[2019-08-28 16:34] VITALS: BP 135/65
[2019-08-28 19:57] VITALS: BP_SYST 120; BP_DIAS 0; BP_DIAS 65
--- NOTE | 2019-08-28 21:04 | NUR ---
Received pt resting in bed and watching tv. AAO x2. Personal sitter at bedside. No acute distress noted. Denies pain/ discomfort. Due med given as ordered. Safety measures maintained. Call light and personal items within reach. Will continue to monitor.
[2019-08-29 05:36] VITALS: BP 119/60
[2019-08-29 08:00] VITALS: BP 114/50
[2019-08-29] MEDS: CALCIUM CARB/VITAMIN D 600-400 MG TABLET PO SCH (08:26)
[2019-08-29] MEDS: ASPIRIN 81 MG TAB.CHEW PO SCH (08:26)
[2019-08-29] MEDS: METOPROLOL TARTRATE 50 MG TABLET PO SCH ×2 (08:27→20:53)
[2019-08-29] MEDS: ENOXAPARIN SODIUM 40 MG/0.4 ML DISP.SYRIN SQ SCH (08:27)
[2019-08-29] MEDS: CYANOCOBALAMIN 100 MCG TABLET PO SCH (08:28)
[2019-08-29] MEDS: MEMANTINE HCL 10 MG TABLET PO SCH ×2 (08:28→16:43)
[2019-08-29] MEDS: DONEPEZIL 10 MG TABLET PO SCH (08:28)
[2019-08-29] MEDS: MULTIVITAMINS,THERAPEUTIC TABLET PO SCH (08:28)
--- NOTE | 2019-08-29 09:59 | NUR ---
Received pt. in bed A/OX1-2, verbally responsive but forgetful at times. All due medications administered as ordered. In no acute distress. On RA and tolerating well. Rt hip noted with 3x surgical sites with steri strips, C/D/I. Participated with PT this AM. No s/sx of bleeding, currently on Lovenox. Tolerated diet well. Safety measures in place. Call light and all frequently used items in place. Will continue to monitor accordingly.
[2019-08-29] MEDS: ACETAMINOPHEN 325 MG TABLET PO PRN (10:57)
[2019-08-29 16:00] VITALS: BP 125/62
--- NOTE | 2019-08-29 18:25 | NUR ---
EOS: No significant changes. All due medications given as ordered. Skin care rendered. Safety measures in place. Call light and all frequently used items within pt. reach. at bedside for emotional support. Will endorse to oncoming shift accordingly.
--- NOTE | 2019-08-29 22:00 | NUR ---
recieved with caregiver at bedside to assist with her care,
[2019-08-29 22:15] VITALS: BP 123/61
[2019-08-30 07:06] VITALS: BP 123/61
[2019-08-30 08:03] VITALS: BP 112/49
[2019-08-30] MEDS: MEMANTINE HCL 10 MG TABLET PO SCH (08:18)
[2019-08-30] MEDS: CALCIUM CARB/VITAMIN D 600-400 MG TABLET PO SCH (08:18)
[2019-08-30] MEDS: ASPIRIN 81 MG TAB.CHEW PO SCH (08:18)
[2019-08-30] MEDS: DONEPEZIL 10 MG TABLET PO SCH (08:19)
[2019-08-30] MEDS: MULTIVITAMINS,THERAPEUTIC TABLET PO SCH (08:19)
[2019-08-30] MEDS: ACETAMINOPHEN 325 MG TABLET PO PRN (08:19)
[2019-08-30] MEDS: ENOXAPARIN SODIUM 40 MG/0.4 ML DISP.SYRIN SQ SCH (08:23)
[2019-08-30 08:24] VITALS: BP 112/49
[2019-08-30] MEDS: METOPROLOL TARTRATE 50 MG TABLET PO SCH (08:24)
--- NOTE | 2019-08-30 12:56 | NUR ---
PATIENT IS ALERT, AWAKE, FORGETFUL AT TIMES, REORIENTED, NO SOB,RES RESP EVEN NONLABORED, SKIN WARM AND DRY TO TOUCH, NO SKIN ISSUES NOTED, SKIN INTACT, MULTIPLE DISCOLORATIONS RESOLVED, INCISION SITE IS CLEAN AND DRY, HAD A CONCERN ABOUT RAISED AREA AT ONE OF THE INCISION SITE AT THIGH, UPON ASSESSMENT, NO SIGNS AND SYMPTOMS OF INFECTION NOTED, NO REDNESS, NO LOCALIZED HOT AT AREA NOTED, PATIENT DENIED PAIN TO THE AREA. TEACHING PROVIDED TO FOLLOW UP WITH SURGEON, COPY GIVEN WITH ADDRESS AND PHONE NUMBER IN 4 WEEKS OR EARLIER, OR GO TO ER IF ANY CONCERNS ABOUT INCISION SITE. PATIENT VERBALIZED UNDERSTANDING OF IT. PATIENT IS BEING DISCHARGED HOME TODAY WITH , IS DRIVING PATIENT HOME. MADE SURE WITH JEWEL SAWYER OK TO DISCHARGE PATIENT HOME WITH IN PRIVATE CAR, AND IS DRIVING PATIENT. BELONGINGS ACCOUNTED AND SIGNED. ID BAND REMOVED.
--- NOTE | 2019-08-30 14:45 | NUR ---
PATIENT DISCHARGED HOME WITH IN PRIVATE CAR. DISCHARGE INSTRUCTIONS GIVEN TO , VERBALIZED UNDERSTANDING OF IT. APPOINTMENT MADE FOR PATIENT WITH ORTHOPEDIC SURGEON WITH DR PENDLETON, ON MondaySEP 06, AT 11AM FOR FOLLOW UP FOR RAISED AREA AT RIGHT THIGH SURGERY SITE, IS AWARE ABOUT APPOINTMENT. PATIENT IN STABLE CONDITION, NO DISTRESS NOTED. WHEELED SAFELY TO THE CAR. SAFETY PRECAUTIONS REVIEWED WITH AND WITH PATIENT, VERBALIZED UNDERSTANDING OF IT.
== END 2019-08-30 14:45 | disposition home health service (06) | DRG 560 ==
PROVIDERS: ADMIT Physical Medicine & Rehabilitation Pain Medicine; ATTEND Physical Medicine & Rehabilitation Pain Medicine
DX: S72.141D Displaced intertrochanteric fracture of right femur, subsequent encounter for closed fracture with routine healing (principal); D68.59 Other primary thrombophilia; N39.0 Urinary tract infection, site not specified; W18.30XD Fall on same level, unspecified, subsequent encounter; E78.5 Hyperlipidemia, unspecified; F03.90 Unspecified dementia, unspecified severity, without behavioral disturbance, psychotic disturbance, mood disturbance, and anxiety; I10 Essential (primary) hypertension; K21.9 Gastro-esophageal reflux disease without esophagitis; Z90.710 Acquired absence of both cervix and uterus; R29.6 Repeated falls; Z91.81 History of falling; R05 Cough; R26.9 Unspecified abnormalities of gait and mobility; R53.1 Weakness
CPT/HCPCS: 36415; 73501; 83735; 84100; 84443; 85025; 87086; A4663; G0515; J1650